=== PATIENT | male | born 1990 | race Caucasian/White ===

== ENCOUNTER 2018-02-25 07:46 | Emergency (ER) | payer OTHER ==
[~2018-02-25] VITALS: Ht 182.9 cm; Wt 84.8 kg
--- NOTE | ~2018-02-25 | EKG ---
[address] [place] [address] ELECTROCARDIOGRAM REPORT Name: TOM DE BARBER Room #: DEP [facility] [id number] Admission: 02/25/18 Attend Phys: Discharge: 02/25/18 Date of : 88 Report #: [id number] THIS REPORT FOR: //name// [facility] ED Test Date: 2018-02-25 Test Time: 08:11:03 Pat Name: TOM DE Department: Room: Gender: M Membership Secretary: viri : 1990 Requested By: Priscilla Moreno Order Number: [id number] MD: Cristhian Souza Measurements Intervals [place] Rate: 97 P: 76 ND: 163 QRS: 68 QRSD: 96 T: 8 QT: 353 QTc: 449 Interpretive Statements Sinus rhythm Normal tracing No previous ECG available for comparison Electronically Signed On 02-25-2018 17:15:15 CDT by Cristhian Souza [email or web address] <ELECTRONICALLY SIGNED> By: Cristhian Souza MD, [facility] 02/25/18 1715 0811 0 Cristhian Souza MD, FACC /EPI
[~2018-02-25 07:46] MED LIST: CARAFATE 11 GM/10 M1 PO; PRILOSEC 20 MG20 MG PO
[2018-02-25 08:30] LABS: ABSOLUTE NEUTROPHILS 3.8 thou/uL (1.4-8.2); BASOPHILS 0.3 % (0.0-2.0); EOSINOPHILS 1.3 % (0.0-3.0); HEMATOCRIT 44.2 % (42.0-52.0); HEMOGLOBIN 15.3 gm/dL (14.0-18.0); LYMPHOCYTES 48.6 % (24.0-44.0); MCH 28.6 pg (26.0-34.0); MCHC 34.7 g/dL (28.0-37.0); MCV 82.4 fL (80.0-100.0); MONOCYTES 7.7 % (1.0-8.0); PLATELET COUNT 244 thou/uL (150-400); POLYS 42.1 % (36.0-66.0); RBC 5.36 mil/uL (4.50-6.00); RDW 13.5 % (10.5-14.5)
[2018-02-25 08:32] LABS: CALCIUM 8.9 mg/dL (8.5-10.1); CREATININE 1.1 mg/dL (0.7-1.3); POTASSIUM 3.6 mmol/L (3.5-5.1)
[2018-02-25 08:39] LABS: TOTAL BILIRUBIN 0.4 mg/dL (<0.1-1.0)
[2018-02-25 11:28] VITALS: BP 122/71
== END 2018-02-25 11:34 | disposition home or self-care (01) ==
LOC: ER 07:46
PROVIDERS: Student in an Organized Health Care Education/Training Program
DX: R07.89 Other chest pain (principal); K21.9 Gastro-esophageal reflux disease without esophagitis; Z88.0 Allergy status to penicillin